=== PATIENT | male | born 1940 | race Caucasian/White ===

== ENCOUNTER 2016-11-12 13:50 | Inpatient (IN) | payer MEDICARE, MEDICAID ==
[2016-11-12] MEDS ORDERED: NS 0.9% 1000 ML* 1,000 ML IV SCH ×2 (14:45→18:00)
[2016-11-12] MEDS ORDERED: NS 0.9% 1000 ML* 1,000 ML IV ONE (14:46)
--- NOTE | 2016-11-12 15:10 | RAD ---
HISTORY: Altered mental status COMPARISONS: February 22, 2014 VIEWS:1: Single frontal portable view of the chest at 2:50 PM FINDINGS: LINES AND TUBES: None. CARDIOMEDIASTINAL SILHOUETTE: The cardiomediastinal silhouette is normal for portable technique. PLEURA: There is a moderate right pleural effusion LUNG PARENCHYMA: There is confluent alveolar opacification of the right lung base ABDOMEN: The upper abdomen is clear. There is no subphrenic gas. BONES AND SOFT TISSUES: No bone or soft tissue abnormalities are noted. IMPRESSION: MODERATE RIGHT PLEURAL EFFUSION WITH RIGHT BASILAR ATELECTASIS VERSUS CONSOLIDATION. RECOMMEND FOLLOW-UP UNTIL RESOLUTION TO EXCLUDE UNDERLYING PULMONARY PARENCHYMAL PATHOLOGY.
[2016-11-12 16:00] LABS: Hematocrit 37 % (42-52); Hemoglobin 12.4 g/dl (14.0-18.0); Mean Corpuscular HGB Conc 33 g/dl (31-36); Mean Corpuscular Hemoglobin 27 pg (27-31); Mean Corpuscular Volume 83 fL (80-94); Mean Platelet Volume 8 um3 (7.4-10.4); Red Blood Count 4.51 10^6/ul (4.0-5.4); Red Cell Distribution Width 14 % (10.5-15)
[2016-11-12 16:19] LABS: Albumin 3.1 g/dL (3.2-5.2); BUN/Creatinine Ratio 21.6 (8-20); C Reactive Protein 174.76 mg/L (< 5.00); Calcium 8.3 mg/dL (8.6-10.3); EGFR African American 108.3 (>60); EGFR Non-African American 84.2 (>60); Globulin 3.1 g/dL (2-4); Magnesium 2.1 mg/dL (1.9-2.7); Potassium 4.1 mmol/L (3.5-5.0); Total Bilirubin 0.4 mg/dL (0.2-1.0); Total Protein 6.2 g/dL (6.4-8.9)
[2016-11-12 16:24] LABS: Troponin I 0.01 ng/mL (<0.04)
[2016-11-12] MEDS ORDERED: Clindamycin 900 MG IVPREMIX(* 900 MG/50 ML SDV IV ONE (16:49)
[2016-11-12] MEDS ORDERED: cefTRIAXone(*) 1 GM in NS 0.9% 50 ML* 50 ML IVPB ONE (16:49)
[2016-11-12 16:56] LABS: TSH (Thyroid Stimulating Horm) 0.76 mcIU/mL (0.34-5.60)
[2016-11-12] MEDS ORDERED: Acetaminophen TAB* 325 MG PO PRN (17:38)
[2016-11-12] MEDS: Azithromycin IV(*) 500 MG in NS 0.9% 250 ML* 250 ML IVPB SCH ×2 (19:32→19:52)
[2016-11-12] MEDS: Piperac/Tazob 3.375 gm in NS* 3.375 GM/100 ML BAG IVPB SCH ×2 (19:47→21:59)
[2016-11-12] MEDS: PHENobarbital TAB(*) 30 MG PO SCH (20:01)
[2016-11-12] MEDS: Phenytoin CAP(*) 100 MG CAP.ER PO SCH (20:01)
[2016-11-12] MEDS: Heparin VIAL(*) 5000 UNITS/ML VIAL (FIVE THOUSAND) SUBCUT SCH (21:59)
--- NOTE | 2016-11-12 22:23 | HP ---
HISTORY AND PHYSICAL: DATE OF ADMISSION: 11/12/16 PRIMARY CARE PROVIDER: Dr. Lurdes Douglas. ATTENDING PHYSICIAN WHILE IN THE HOSPITAL: Dr. Sudarshan Guerin* (report dictated by Peter Ramsey NP) CHIEF COMPLAINT: 1. Cough. 2. Not acting right. HISTORY OF PRESENT ILLNESS: I would like to preface the report by saying that the patient has underlying severe intellectual developmental delay. He was unable to give much history. Most of the history was obtained from the patient' s primary skin care specialist, who knows the patient quite well. The patient's aide states that the last week or so, they have noticed that the patient has been coughing. It has been a nonproductive cough. They have noted decline in his appetite and they have also noted that he has not been acting himself. He is normally quite aggressive in the sense that he punches staff at times and sometimes he does interfere with medical devices and he hold things off. The aide notes that he has been more drowsy, just not acting himself, more weak. They have noticed a couple times when he has been coughing, it seems like he almost fainted. In addition to this, they noticed that when they tried getting him up ambulating today, he just was very weak and not acting himself. He is normally pretty self sufficient with ambulation. He does not need any help, so they were concerned. They do note that the week leading up this, he did have issues with eating. He did cough at times. He has passed a swallowing eval although according to them and was on honey liquid diet. In addition to this, also on ground meat as well, ground diet. The patient though, however, still is not acting himself, more lethargic, more drowsy, more weak, so they decide to bring the patient into the ER. They did note at times he was hypoxic at 88% particularly when he was coughing. He was evaluated in the ER. He was found to have a moderate to large right-sided pleural effusion. There was concern for aspiration pneumonitis and possible pneumonia. Hospitalist service was asked to evaluate for admission. PAST MEDICAL HISTORY: Significant for: 1. Intellectual developmental delay. 2. Hypocalcemia. 3. Seizure. 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 5. Chronic constipation. 6. BPH. PAST SURGICAL HISTORY: Unknown. HOME MEDICATIONS: Include: 1. Robitussin every 4 hours as needed. 2. Milk of mag 30 cc p.o. daily as needed. 3. Advil 400 mg p.o. every 6 hours as needed. 4. Tylenol 650 mg p.o. every 4 hours as needed. 5. Debrox 5 drops both ears on Friday. 6. Salicylic acid 2% topically daily. 7. Metronidazole cream 0.75% topically b.i.d. 8. Phenobarbital 60 mg at bedtime. 9. Senna 1 tablet p.o. b.i.d. 10. Ensure 1 can p.o. b.i.d. 11. Calcium with vitamin D 1 tablet p.o. b.i.d. 12. Flomax 0.4 mg p.o. daily. 13. Dilantin 200 mg daily. 14. MiraLAX 17 g p.o. daily. 15. Claritin 10 mg p.o. daily. 16. Proscar 5 mg p.o. daily. 17. Multivitamin 1 tablet daily. 18. Aspirin 81 mg daily. 19. Phenantoin 100 mg p.o. in the morning. ALLERGIES TO MEDICATIONS: Include SULFA. FAMILY HISTORY: None known. SOCIAL HISTORY: He does not smoke. He does not drink alcohol. He lives at [facility]. For consent, he has Haydee Pfeiffer, phone number [phone], other number [phone]. This is the patient's for consent and healthcare decision maker. REVIEW OF SYSTEMS: Unable to be obtained given the patient's underlying intellectual developmental delay. PHYSICAL EXAMINATION GENERAL: At this time, Mr. Jimenez is a 76-year-old male patient. He is sitting in the ER stretcher. He does not appear to be in any acute distress. VITAL SIGNS: Reveals blood pressure 116/94 with a pulse 87, respirations 18, O2 sat 94%, temperature 98.7. HEENT: Head atraumatic. Eyes: Sclerae anicteric. Pupils react to light. Throat: Oral mucosa appear to be dry. No oropharyngeal erythema. NECK: Supple. HEART: Sounds S1, S2. Regular rate and rhythm. No murmurs, rubs, or gallops. LUNGS: He was diminished on the right side. Equal diaphragmatic expansion. ABDOMEN: Soft, flat, nontender. Bowel sounds present. EXTREMITIES: He is moving all 4 extremities, pulses are 2+ throughout. NEUROLOGIC: He is awake to himself only. He has gross obvious focal deficits. SKIN: Intact. LABORATORY DATA: Labs today revealed WBC of 7.0, RBC of 4.51, hemoglobin 12.4 , hematocrit 37, platelet count of 192. INR 1.05. PTT at 30.9. Sodium 138, potassium 4.1, chloride of 103, bicarb 30, BUN 19, creatinine 0.88, glucose of 85, lactic 1.6, calcium 8.3, total bilirubin was 0.4, AST 17, ALT 14, alk phos 84, CK 102, CK-MB 2.1, troponin 0.01, CRP 174, BNP 27, albumin 3.1, lipase is 10 , TSH 0.76. The patient did have a chest x-ray obtained today. Under my review, there is [id number] pleural effusion on the right side. Radiology read it as moderate right-sided pleural effusion with right basilar atelectasis versus consolidation. Recommend followup until resolution to exclude underlying pulmonary parenchymal pathology. He had an EKG obtained today as well. Which showed a sinus rhythm, rate of 85, no ST elevations or T-wave inversions were noted. Old medical records were reviewed. ASSESSMENT AND PLAN: Mr. Jimenez is a 76-year-old male patient coming into the ER today with complaints of cough and potentially altered mental status compared to his baseline. On further evaluation, he was found to have a right- sided pleural effusion. He will be admitted under inpatient status for: 1. Right-sided pleural effusion with possible consolidation. This may be a parapneumonic effusion. It could be possible related to aspiration. The plan is leave the patient n.p.o. I did touch base with Radiology to set up a thoracentesis for a diagnostic tap. I also had consulted Dr. Fernandez as well. The plan will be to try to get this tap done tomorrow, send off for cultures and Gram stain. In addition to this, pH protein and LDH and a cell count on the fluid and we should also send off for cytology as well. For the time being , I am going to place the patient on Zosyn, azithromycin. Make the patient n.p.o. for the time being. After the thoracentesis, we could reevaluate his swallowing function and then order him appropriate diet. 2. Intellectual developmental delay. Continue with supportive care. 3. Hypocalcemia. We will follow his BMP daily. 4. Seizure. Continue meds as prescribed. 5. History of positive PPD. Can follow with the outpatient setting. 6. Constipation. We will continue his bowel regimen when he is taking better p.o. and after we get the tap done. 7. Benign prostatic hypertrophy. Continue his Flomax. 8. DVT prophylaxis. He is high risk. He will be placed on heparin subcu. 9. Code status. He is full code. 10. Fluids, electrolytes, nutrition. He is n.p.o. I will order normal saline at 100 an hour for the time being while he is n.p.o. and we will replace his lytes as needed. We will get swallow eval after thoracentesis is done for recommendations on his liquids and diet recommendations. TIME SPENT: Time spent on this admission was 60 minutes, greater than half the time was spent [id number] with the patient obtaining my history and physical, and the other half time was spent going over the plan of care with patient and implementing plan of care. I did discuss the plan of care with my attending, Dr. Guerin, he is in agreement. PETER RAMSEY NP CC: Dr. Lurdes Douglas* [id number]/CPS #: [id number] MTDD
[2016-11-13 03:24] LABS: Hematocrit 36 % (42-52); Hemoglobin 11.9 g/dl (14.0-18.0); Mean Corpuscular HGB Conc 33 g/dl (31-36); Mean Corpuscular Hemoglobin 28 pg (27-31); Mean Corpuscular Volume 83 fL (80-94); Mean Platelet Volume 8 um3 (7.4-10.4); Red Blood Count 4.33 10^6/ul (4.0-5.4); Red Cell Distribution Width 14 % (10.5-15); White Blood Count 5.4 10^3/ul (3.5-10.8)
[2016-11-13 03:41] LABS: BUN/Creatinine Ratio 19.1 (8-20); Calcium 8.1 mg/dL (8.6-10.3); EGFR African American 106.9 (>60); EGFR Non-African American 83.1 (>60); Potassium 4.2 mmol/L (3.5-5.0)
[2016-11-13] MEDS: Piperac/Tazob 3.375 gm in NS* 3.375 GM/100 ML BAG IVPB SCH ×3 (04:34→22:25)
[2016-11-13] MEDS: Heparin VIAL(*) 5000 UNITS/ML VIAL (FIVE THOUSAND) SUBCUT SCH ×3 (04:35→21:04)
[2016-11-13] MEDS: Tamsulosin CAP* 0.4 MG PO SCH (09:31)
[2016-11-13] MEDS: Phenytoin CAP(*) 100 MG CAP.ER PO SCH ×2 (09:31→18:31)
--- NOTE | 2016-11-13 10:32 | CONS ---
PULMONARY CONSULTATION REPORT: DATE OF CONSULT: 11/13/16 CONSULTATION REQUESTED BY: Peter Ramsey NP. REASON FOR CONSULTATION: Evaluation of pleural effusion. HISTORY OF PRESENT ILLNESS: The patient is a 76-year-old male with intellectual delay, resident of [facility], brought in for evaluation of cough and change in mental status. The patient is nonverbal and is not able to provide history due to intellectual delay. The patient as per aide has been having nonproductive, decline in his appetite and has not been himself. At baseline, the patient is quite aggressive and he has appeared to be more drowsy and weak. The patient was also noted to be coughing intermittently. The patient also has been appearing very weak and not acting himself. There is a question of possible aspiration at the facility. The patient also noted to be hypoxemic with O2 sats around 88% and coughing. Further evaluation in the emergency room included chest x-ray. I have personally reviewed the chest x-ray , which showed [id number] right-sided pleural effusion concerning for aspiration pneumonitis and pneumonia. He was admitted for management of aspiration pneumonitis and pleural effusion. The patient is on O2 supplementation currently. He is not able to provide any further history. PAST MEDICAL HISTORY: 1. Intellectual developmental delay. 2. Hypocalcemia. 3. Seizure. 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 5. Chronic constipation. 6. BPH. PAST SURGICAL HISTORY: Unknown. MEDICATIONS: 1. Robitussin. 2. Milk of magnesia. 3. Advil. 4. Tylenol. 5. Debrox. 6. Salicylic acid. 7. Metronidazole. 8. Phenobarbital. 9. Senna. 10. Ensure. 11. Calcium with vitamin D. 12. Flomax. 13. Dilantin. 14. MiraLAX. 15. Claritin. 16. Proscar. 17. Multivitamin. 18. Aspirin. 19. Phenytoin. ALLERGIES: SULFA. FAMILY HISTORY: Noncontributory to current complaint. SOCIAL HISTORY: Nonsmoker, no history of alcohol abuse. He lives at [facility]. His sister is his healthcare proxy. REVIEW OF SYSTEMS: Unable to obtain review of systems due to intellectual delay and unable to provide history by patient. PHYSICAL EXAMINATION: The patient in no apparent distress. Vital Signs: Temperature 98.7, pulse 92 beats per minute, respiratory rate 16 per minute, O2 saturation 93% on O2, blood pressure 98/50. HEENT: Pupils are equal and reactive to light. Mucous membranes are moist. Neck: Supple. Cardiovascular : S1 and S2 present, regular. No murmurs, gallops, or rubs. Lungs: Diminished air entry on the right side. Abdomen: Soft, nontender and nondistended. Extremities: Normal range of motion. Neurological: Alert, awake. No gross focal deficits. Skin: Intact. DIAGNOSTIC STUDIES/LABORATORY DATA: WBC count 5.4, hemoglobin 11.9, hematocrit 36, platelet count 178. INR 1.10. Sodium 140, potassium 4.2, chloride 106, bicarb 24, BUN 17, creatinine 0.8, calcium 8.1, BNP 27. Chest x-ray performed on admission was personally reviewed by me, evidence of moderate-sized right pleural effusion with no mediastinal shift. IMPRESSION/RECOMMENDATIONS: 76-year-old male with developmental delay, resident of [facility], admitted with cough, altered mental status, with suggestion of possible aspiration pneumonia and parapneumonic effusion. The patient with no significant elevated white count at this time. Agree with current antibiotic coverage. Continue with O2 supplementation. The patient is not cooperative for procedure. He appears to be stable. Procedure is not urgent at this time. Would recommend scheduling the procedure with Interventional Radiology as the patient would need conscious sedation during the procedure. Thank you for allowing me to participate in the care of your patient. Will follow up with you. [id number]/CPS #: [id number] ALIRIO
--- NOTE | 2016-11-13 12:48 | PN ---
Subjective Date of Service: 11/13/16 Interval History: HOSPITALIST PROGRESS NOTE Patient seen and examined at bedside. Non-verbal. Family History: Unchanged from Admission Social History: Unchanged from Admission Past Medical History: Unchanged from Admission Objective Active Medications: Acetaminophen (Tylenol Tab*) 650 mg PO Q4H PRN PRN Reason: FEVER/PAIN Heparin Sodium (Porcine) (Heparin Vial(*)) 5,000 units SUBCUT Q8HR [facility] Last Admin: 11/13/16 04:35 Dose: 5,000 units Azithromycin 500 mg/ Sodium (Chloride) 250 mls @ 250 mls/hr IVPB 1930 [facility] Last Admin: 11/12/16 19:32 Dose: 250 mls/hr Piperacillin Sod/Tazobactam Sod (Zosyn 3.375 Gm In Ns Premix*) 3.375 gm in 100 mls @ 25 mls/hr IVPB Q8H [facility] Last Admin: 11/13/16 04:34 Dose: 25 mls/hr Sodium Chloride (Ns 0.9% 1000 Ml*) 1,000 mls @ 100 mls/hr IV PER RATE [facility] Last Admin: 11/12/16 18:49 Dose: 100 mls/hr Phenobarbital (Phenobarbital Tab(*)) 60 mg PO 2000 [facility] Last Admin: 11/12/16 20:01 Dose: 60 mg Phenytoin Sodium (Dilantin Cap(*)) 100 mg PO QAM [facility] Last Admin: 11/13/16 09:31 Dose: 100 mg Phenytoin Sodium (Dilantin Cap(*)) 200 mg PO QPM [facility] Last Admin: 11/12/16 20:01 Dose: 200 mg Tamsulosin HCl (Flomax Cap*) 0.4 mg PO DAILY [facility] Last Admin: 11/13/16 09:31 Dose: 0.4 mg Vital Signs 11/13/16 11/13/16 11/13/16 08:00 08:11 11:24 Temperature 98.1 F 98.0 F Pulse Rate 99 92 Respiratory 16 17 16 Rate Blood Pressure 85/47 115/72 (mmHg) O2 Sat by Pulse 94 97 Oximetry Oxygen Devices in Use Now: Nasal Cannula Appearance: Elderly male lying in bed in NAD. Eyes: No Scleral Icterus Ears/Nose/Mouth/Throat: Mucous Membranes Moist Neck: Trachea Midline Respiratory: Symmetrical Chest Expansion and Respiratory Effort, - - BS+ bilaterally, diminished on the right side Cardiovascular: RRR - Normal S1 and S2 Abdominal: NL Sounds; No Tenderness; No Distention Neurological: - - Alert and awake, did not talk to me Lines/Tubes/Other Access: Clean, Dry and Intact Peripheral IV Result Diagrams: 11/13/16 03:12 11/13/16 03:12 Assess/Plan/Problems-Billing Assessment: Mr. Jimenez is a 76yo M with PMH of intelectual developmental delay, seizure disorder, positive PPD, chronic constipation, BPH, brought in to ED with cough, lethargy, found to have RLL pneumonia with pleural effusion. - Patient Problems (1) Pneumonia Comment: - RLL infiltrate with pleural effusion. - IR feels patient will need thoracentesis with general anesthesia, as he's not cooperative. Will contact Pulmonology to make arrangements. - Continue Zosyn and Zithromax to cover for possible aspiration and CAP. - Swallow evaluation - continue NPO for now. - Continue IVF. (2) Seizure disorder Comment: - Continue phenytoin and phenobarbital. - Seizure precautions. (3) BPH (benign prostatic hyperplasia) Comment: - Continue Tamsulosin. (4) DVT prophylaxis Comment: - SQ heparin. (5) Full code status Status and Disposition: Inpatient.
[2016-11-13] MEDS ORDERED: NS 0.9% 1000 ML* 1,000 ML IV SCH (13:09)
[2016-11-13] MEDS: Azithromycin IV(*) 500 MG in NS 0.9% 250 ML* 250 ML IVPB SCH (20:24)
[2016-11-13] MEDS: PHENobarbital TAB(*) 30 MG PO SCH (21:04)
[2016-11-14 03:24] LABS: Urine Bilirubin Negative (Negative); Urine Glucose Negative (Negative); Urine Nitrite Negative (Negative)
[2016-11-14] MEDS: Piperac/Tazob 3.375 gm in NS* 3.375 GM/100 ML BAG IVPB SCH ×3 (04:49→21:24)
[2016-11-14] MEDS: Heparin VIAL(*) 5000 UNITS/ML VIAL (FIVE THOUSAND) SUBCUT SCH ×3 (05:52→21:25)
[2016-11-14 07:02] LABS: Hematocrit 33 % (42-52); Hemoglobin 11.2 g/dl (14.0-18.0); Mean Corpuscular HGB Conc 34 g/dl (31-36); Mean Corpuscular Hemoglobin 28 pg (27-31); Mean Corpuscular Volume 82 fL (80-94); Mean Platelet Volume 8 um3 (7.4-10.4); Red Blood Count 4.04 10^6/ul (4.0-5.4); Red Cell Distribution Width 14 % (10.5-15)
[2016-11-14 07:16] LABS: BUN/Creatinine Ratio 15.9 (8-20); Calcium 8.1 mg/dL (8.6-10.3); EGFR African American 108.3 (>60); EGFR Non-African American 84.2 (>60); Potassium 4.1 mmol/L (3.5-5.0)
[2016-11-14] MEDS: Phenytoin CAP(*) 100 MG CAP.ER PO SCH ×2 (08:31→18:16)
[2016-11-14] MEDS: Tamsulosin CAP* 0.4 MG PO SCH (08:31)
--- NOTE | 2016-11-14 10:16 | PN ---
Progress Note - Progress Note Note: Pulm consult f/u note 11/14/16. Pt seen and examined at bedside. Pt is sitting in chair, talking loudly Active Medications Generic Name Dose Route Start Last Admin Trade Name Freq PRN Reason Stop Dose Admin Acetaminophen 650 mg 11/12/16 17:38 Tylenol Tab* PO Q4H PRN FEVER/PAIN Heparin Sodium (Porcine) 5,000 units 11/12/16 22:00 11/14/16 05:52 Heparin Vial(*) SUBCUT Not Given Q8HR WILLIE Azithromycin 500 mg/ Sodium 250 mls @ 250 mls/hr 11/12/16 19:30 11/13/16 20: 24 Chloride IVPB 250 mls/hr 1930 WILLIE Administration Piperacillin Sod/Tazobactam Sod 3.375 gm in 100 mls @ 25 mls/hr 11/12/16 20: 00 11/14/16 04:49 Zosyn 3.375 Gm In Ns Premix* IVPB 25 mls/hr Q8H WILLIE Administration Sodium Chloride 1,000 mls @ 100 mls/hr 11/13/16 13:09 11/13/16 22:26 Ns 0.9% 1000 Ml* IV 100 mls/hr PER RATE WILLIE Administration Phenobarbital 60 mg 11/12/16 20:00 11/13/16 21:04 Phenobarbital Tab(*) PO 60 mg 2000 WILLIE Administration Phenytoin Sodium 100 mg 11/13/16 09:00 11/14/16 08:31 Dilantin Cap(*) PO 100 mg QAM WILLIE Administration Phenytoin Sodium 200 mg 11/12/16 18:00 11/13/16 18:31 Dilantin Cap(*) PO 200 mg QPM WILLIE Administration Tamsulosin HCl 0.4 mg 11/13/16 09:00 11/14/16 08:31 Flomax Cap* PO 0.4 mg DAILY WILLIE Administration Vital Signs Temp Pulse Resp BP Pulse Ox 97.5 F 102 17 143/112 97 11/14/16 08:07 11/14/16 08:07 11/14/16 08:07 11/14/16 08:07 11/14/16 03:17 Gen: Elderly male sitting in chair in NAD. HEENT: No Scleral Icterus, Mucous Membranes Moist Neck: Trachea Midline Respiratory: Symmetrical Chest Expansion and Respiratory Effort,BS+ bilaterally , diminished on the right side Cardiovascular: RRR, Normal S1 and S2 Abdominal: NL Sounds; No Tenderness; No Distention Neurological: Alert and awake, doesnot answer questions Laboratory Results - last 24 hr 11/14/16 11/14/16 11/14/16 03:10 06:32 06:32 WBC 5.0 RBC 4.04 Hgb 11.2 L Hct 33 L MCV 82 MCH 28 MCHC 34 RDW 14 Plt Count 181 MPV 8 Neut % (Auto) 63.1 Lymph % (Auto) 21.0 L [place] % (Auto) 10.0 H Eos % (Auto) 5.2 Baso % (Auto) 0.7 Absolute Neuts (auto) 3.2 Absolute Lymphs (auto) 1.1 Absolute Monos (auto) 0.5 Absolute Eos (auto) 0.3 Absolute Basos (auto) 0 Absolute Nucleated RBC 0 Nucleated RBC % 0 Sodium 140 Potassium 4.1 Chloride 107 Carbon Dioxide 23 Anion Gap 10 BUN 14 Creatinine 0.88 Est GFR ( Amer) 108.3 Est GFR (Non-Af Amer) 84.2 BUN/Creatinine Ratio 15.9 Glucose 74 Calcium 8.1 L Urine Color Yellow Urine Appearance Clear Urine pH 5.0 Ur Specific [place] 1.024 Urine Protein Negative Urine Ketones 1+ H Urine Blood Negative Urine Nitrate Negative Urine Bilirubin Negative Urine Urobilinogen Negative Ur Leukocyte Esterase Negative Urine Glucose Negative I/R: Pt is a 76yo M with PMH of intelectual developmental delay, seizure disorder, positive PPD, chronic constipation, BPH, brought in to ED with cough, lethargy, found to have RLL pneumonia with pleural effusion. RLL infiltrate with pleural effusion- ? aspiration PNA and parapneumonic effusion - Pt scheduled for thoracentesis today under anesthesia as he is not coperative at baseline - Procedure was discussed in detail with pts sister and HCP, informed consent was obtained - Associated risks and complications including risk for pneumothorax in his case were discussed - It is felt that benefits outweigh the risks in his case and it was decided to proceed with procedure - Continue Zosyn and Zithromax to cover for possible aspiration and CAP. - Continue IVF. D/w Dr Loyola
[2016-11-14] MEDS ORDERED: Sodium Citrate/Citric Acid* 15 ML UDC PO ONE (10:40)
[2016-11-14] MEDS ORDERED: Famotidine IV* 10 MG/ML 2 ML (20 mg) IV ONE (10:40)
[2016-11-14] MEDS ORDERED: Buffered Lidocaine 1% SYRIN* 3 ML/SYR SYRINGE INTRADERM ONE (10:40)
[2016-11-14] MEDS ORDERED: Famotidine IV* 10 MG/ML 2 ML (20 mg) ONE (11:13)
[2016-11-14] MEDS ORDERED: Propofol* 10 MG/ML 20 ML BTL IV PUSH ONE (11:52)
[2016-11-14] MEDS ORDERED: Ondansetron INJ* 2 MG/ML VIAL ONE (11:52)
[2016-11-14] MEDS ORDERED: Midazolam* 1 MG/ML 5 ML VIAL (5 MG) ONE ×2 (11:53→12:38)
[2016-11-14] MEDS ORDERED: KETAMINE HCL* 50 MG/ML 10 ML VIAL ONE (11:53)
[2016-11-14] MEDS ORDERED: Lidocain 1% EPI 1:100,000 * 30 ML MDV ONE (11:59)
[2016-11-14] MEDS ORDERED: Lidocaine 1% MPF wEPI 200,000* 30 ML SDV ONE (11:59)
--- NOTE | 2016-11-14 13:12 | RAD ---
Indication: RIGHT pleural effusion. Marking for thoracentesis. Comparison: November 12, 2016 Technique: Ultrasound of the RIGHT thorax performed with the patient sitting. Dr. Fernandez present for the ultrasound examination. 7 images obtained. REPORT AND IMPRESSION: A moderate pocket of RIGHT basilar pleural fluid is visualized.
--- NOTE | 2016-11-14 14:07 | RAD ---
INDICATION: Thoracentesis. Evaluate for pneumothorax. COMPARISON: Chest x-ray November 12, 2016 TECHNIQUE: An AP portable view obtained at 1325 hours is submitted. FINDINGS: Bones/Soft Tissues: There are no acute bony findings. Cardiomediastinal: The cardiomediastinal silhouette is unchanged allowing for apical lordotic positioning. Lungs: The left lung is clear. There is decreased pleural fluid on the right postthoracentesis. There is no evidence of pneumothorax. Pleura: There are no pleural effusions. Other: None IMPRESSION: NO PNEUMOTHORAX POST RIGHT-SIDED THORACENTESIS
--- NOTE | 2016-11-14 15:55 | CONS ---
CONSULTATION REPORT: DATE OF CONSULT: 11/14/16 HISTORY: The patient is a 76-year-old male with a large right pleural effusion who was in the operating room for thoracentesis by Dr. Fernandez. She was having difficulty getting the thoracentesis needle into the space and called for intraoperative consultation. On my arrival, the patient was sitting at the bedside with intravenous sedation by the anesthesiologist. The right posterior thorax was already prepped and draped and I did review his chest x-ray and his ultrasound and felt that there looked like a reasonable amount of fluid that should be obtainable. After scrubbing in, I attempted with a skinny needle and approximately at the 9th interspace, I was able to get clear yellow fluid and then I was able to pass the thoracentesis catheter into the space and clear yellow fluid continued to be easily forthcoming. Dr. Fernandez completed the procedure at this point without difficulty. CC: Anish Garcia MD; Ginny Fernandez MD* [id number]/[facility] #: [id number] [facility]
[2016-11-14 18:38] LABS: Body Fluid Appearance Cloudy
--- NOTE | 2016-11-14 18:58 | PN ---
Subjective Date of Service: 11/14/16 Interval History: Pt was seen post thoracentesis, mildly sedated, nonverbal at baseline, appears comfortable Family History: Unchanged from Admission Social History: Unchanged from Admission Past Medical History: Unchanged from Admission Objective Active Medications: Acetaminophen (Tylenol Tab*) 650 mg PO Q4H PRN PRN Reason: FEVER/PAIN Heparin Sodium (Porcine) (Heparin Vial(*)) 5,000 units SUBCUT Q8HR [facility] Last Admin: 11/14/16 15:47 Dose: 5,000 units Azithromycin 500 mg/ Sodium (Chloride) 250 mls @ 250 mls/hr IVPB 1930 [facility] Last Admin: 11/13/16 20:24 Dose: 250 mls/hr Piperacillin Sod/Tazobactam Sod (Zosyn 3.375 Gm In Ns Premix*) 3.375 gm in 100 mls @ 25 mls/hr IVPB Q8H [facility] Last Admin: 11/14/16 13:50 Dose: 25 mls/hr Sodium Chloride (Ns 0.9% 1000 Ml*) 1,000 mls @ 100 mls/hr IV PER RATE [facility] Last Admin: 11/13/16 22:26 Dose: 100 mls/hr Lactated Ringer's (Lactated Ringers 1000 Ml Bag*) 1,000 mls @ 125 mls/hr IV PER RATE [facility] Last Admin: 11/14/16 18:18 Dose: 125 mls/hr Phenobarbital (Phenobarbital Tab(*)) 60 mg PO 2000 [facility] Last Admin: 11/13/16 21:04 Dose: 60 mg Phenytoin Sodium (Dilantin Cap(*)) 100 mg PO QAM [facility] Last Admin: 11/14/16 08:31 Dose: 100 mg Phenytoin Sodium (Dilantin Cap(*)) 200 mg PO QPM [facility] Last Admin: 11/14/16 18:16 Dose: 200 mg Tamsulosin HCl (Flomax Cap*) 0.4 mg PO DAILY [facility] Last Admin: 11/14/16 08:31 Dose: 0.4 mg Vital Signs 11/13/16 11/13/16 11/13/16 20:00 20:23 21:04 Temperature Pulse Rate 94 Respiratory 16 16 16 Rate Blood Pressure 91/66 (mmHg) O2 Sat by Pulse Oximetry 11/13/16 11/13/16 11/14/16 23:04 23:31 03:17 Temperature Pulse Rate 89 90 Respiratory 16 18 18 Rate Blood Pressure 109/66 109/64 (mmHg) O2 Sat by Pulse 95 97 Oximetry 11/14/16 11/14/16 11/14/16 08:00 08:07 11:10 Temperature 97.5 F 99.1 F Pulse Rate 102 88 Respiratory 17 17 18 Rate Blood Pressure 143/112 114/77 (mmHg) O2 Sat by Pulse 97 Oximetry 11/14/16 11/14/16 11/14/16 13:20 13:30 14:15 Temperature 97.5 F 97.5 F Pulse Rate 92 77 85 Respiratory 20 16 20 Rate Blood Pressure 147/72 136/60 124/77 (mmHg) O2 Sat by Pulse 100 96 99 Oximetry 11/14/16 11/14/16 11/14/16 15:15 16:00 17:54 Temperature 97.8 F 99.2 F Pulse Rate 78 92 Respiratory 16 18 Rate Blood Pressure 126/77 124/68 (mmHg) O2 Sat by Pulse 98 98 95 Oximetry Oxygen Devices in Use Now: None Appearance: 76 yo M in nAd, nonverbal, awake, lying in bed, unable to follow commands Eyes: No Scleral Icterus, PERRLA Ears/Nose/Mouth/Throat: NL Teeth, Lips, Gums, Mucous Membranes Moist Neck: NL Appearance and Movements; NL JVP, Trachea Midline Respiratory: Symmetrical Chest Expansion and Respiratory Effort, - - RLL rhonchi Cardiovascular: NL Sounds; No Murmurs; No JVD, RRR Abdominal: NL Sounds; No Tenderness; No Distention, No Hepatosplenomegaly Lymphatic: No Cervical Adenopathy Extremities: No Edema, No Clubbing, Cyanosis Skin: No Rash or Ulcers, No Nodules or Sclerosis Neurological: NL Muscle Strength and Tone Result Diagrams: 11/14/16 06:32 11/14/16 06:32 Additional Lab and Data: Lab Results 11/12/16 11/12/16 11/12/16 Range/Units 15:47 15:47 15:47 WBC 7.0 (3.5-10.8) 10^3/ul RBC 4.51 (4.0-5.4) 10^6/ul Hgb 12.4 L (14.0-18.0) g/dl Hct 37 L (42-52) % MCV 83 (80-94) fL MCH 27 (27-31) pg MCHC 33 (31-36) g/dl RDW 14 (10.5-15) % Plt Count 192 (150-450) 10^3/ul MPV 8 (7.4-10.4) um3 Neut % (Auto) 55.6 (38-83) % Lymph % (Auto) 25.7 (25-47) % [place] % (Auto) 14.4 H (1-9) % Eos % (Auto) 4.1 (0-6) % Baso % (Auto) 0.2 (0-2) % Absolute Neuts (auto) 3.9 (1.5-7.7) 10^3/ul Absolute Lymphs (auto) 1.8 (1.0-4.8) 10^3/ul Absolute Monos (auto) 1.0 H (0-0.8) 10^3/ul Absolute Eos (auto) 0.3 (0-0.6) 10^3/ul Absolute Basos (auto) 0 (0-0.2) 10^3/ul Absolute Nucleated RBC 0 10^3/ul Nucleated RBC % 0 INR (Anticoag Therapy) 1.05 (0.89-1.11) APTT 30.9 (26.0-36.3) seconds Sodium 138 (133-145) mmol/L Potassium 4.1 (3.5-5.0) mmol/L Chloride 103 (101-111) mmol/L Carbon Dioxide 30 (22-32) mmol/L Anion Gap 5 (2-11) mmol/L BUN 19 (6-24) mg/dL Creatinine 0.88 (0.67-1.17) mg/dL Est GFR ( Amer) 108.3 (>60) Est GFR (Non-Af Amer) 84.2 (>60) BUN/Creatinine Ratio 21.6 H (8-20) Glucose 85 (70-100) mg/dL Lactic Acid (0.5-2.0) mmol/L Calcium 8.3 L (8.6-10.3) mg/dL Magnesium 2.1 (1.9-2.7) mg/dL Total Bilirubin 0.40 (0.2-1.0) mg/dL AST 17 (13-39) U/L ALT 14 (7-52) U/L Alkaline Phosphatase 84 (34-104) U/L Total Creatine Kinase 102 (10-223) U/L CK-MB (CK-2) 2.1 (0.6-6.3) ng/mL Troponin I 0.01 (<0.04) ng/mL C-Reactive Protein 174.76 H (< 5.00) mg/L B-Natriuretic Peptide ( - 100) pg/mL Total Protein 6.2 L (6.4-8.9) g/dL Albumin 3.1 L (3.2-5.2) g/dL Globulin 3.1 (2-4) g/dL Albumin/Globulin Ratio 1.0 (1-3) Lipase 10 L (11.0-82.0) U/L TSH Pending 11/12/16 11/12/16 Range/Units 15:47 15:47 WBC (3.5-10.8) 10^3/ul RBC (4.0-5.4) 10^6/ul Hgb (14.0-18.0) g/dl Hct (42-52) % MCV (80-94) fL MCH (27-31) pg MCHC (31-36) g/dl RDW (10.5-15) % Plt Count (150-450) 10^3/ul MPV (7.4-10.4) um3 Neut % (Auto) (38-83) % Lymph % (Auto) (25-47) % [place] % (Auto) (1-9) % Eos % (Auto) (0-6) % Baso % (Auto) (0-2) % Absolute Neuts (auto) (1.5-7.7) 10^3/ul Absolute Lymphs (auto) (1.0-4.8) 10^3/ul Absolute Monos (auto) (0-0.8) 10^3/ul Absolute Eos (auto) (0-0.6) 10^3/ul Absolute Basos (auto) (0-0.2) 10^3/ul Absolute Nucleated RBC 10^3/ul Nucleated RBC % INR (Anticoag Therapy) (0.89-1.11) APTT (26.0-36.3) seconds Sodium (133-145) mmol/L Potassium (3.5-5.0) mmol/L Chloride (101-111) mmol/L Carbon Dioxide (22-32) mmol/L Anion Gap (2-11) mmol/L BUN (6-24) mg/dL Creatinine (0.67-1.17) mg/dL Est GFR ( Amer) (>60) Est GFR (Non-Af Amer) (>60) BUN/Creatinine Ratio (8-20) Glucose (70-100) mg/dL Lactic Acid 1.6 (0.5-2.0) mmol/L Calcium (8.6-10.3) mg/dL Magnesium (1.9-2.7) mg/dL Total Bilirubin (0.2-1.0) mg/dL AST (13-39) U/L ALT (7-52) U/L Alkaline Phosphatase (34-104) U/L Total Creatine Kinase (10-223) U/L CK-MB (CK-2) (0.6-6.3) ng/mL Troponin I (<0.04) ng/mL C-Reactive Protein (< 5.00) mg/L B-Natriuretic Peptide 27 ( - 100) pg/mL Total Protein (6.4-8.9) g/dL Albumin (3.2-5.2) g/dL Globulin (2-4) g/dL Albumin/Globulin Ratio (1-3) Lipase (11.0-82.0) U/L TSH Microbiology and Other Data: Microbiology 11/12/16 18:43 Influenza Types A,B Antigen ([facility]) - Final Nasal Specimen received for Influenza A/B Molecular testing 11/12/16 18:43 Nasal Screen MRSA (PCR)([facility]) - Final Nasal Mrsa Positive Assess/Plan/Problems-Billing Assessment: Mr. Jimenez is a 76yo M with PMH of intelectual developmental delay, seizure disorder, positive PPD, chronic constipation, BPH, brought in to ED with cough, lethargy, found to have RLL pneumonia with pleural effusion. - Patient Problems (1) Pneumonia Comment: - RLL infiltrate with pleural effusion. - s/p thoracentesis with general anesthesia today. 800 ml of fluid removed,labs pending - Continue Zosyn and Zithromax to cover for possible aspiration and CAP. - Swallow evaluation -OKed for mech ground and thickened liquids - Continue IVF. (2) Seizure disorder Comment: - Continue phenytoin and phenobarbital. - Seizure precautions. (3) BPH (benign prostatic hyperplasia) Comment: - Continue Tamsulosin. (4) DVT prophylaxis Comment: - SQ heparin. Status and Disposition: Inpatient.
[2016-11-14 19:08] LABS: Body Fluid Total Cells Counted 100
[2016-11-14] MEDS: Azithromycin IV(*) 500 MG in NS 0.9% 250 ML* 250 ML IVPB SCH (20:02)
[2016-11-14] MEDS: PHENobarbital TAB(*) 30 MG PO SCH (21:24)
--- NOTE | 2016-11-15 02:04 | PRO ---
THORACENTESIS REPORT: DATE OF PROCEDURE: 11/14/16 PROCEDURE PERFORMED: Ultrasound-guided thoracentesis on the right side. INDICATION/PREPROCEDURAL DIAGNOSIS: Moderate to large sized right pleural effusion, concern for parapneumonic effusion. ANESTHESIA: Local anesthesia with 1% lidocaine, 10 cc and conscious sedation. ANESTHESIOLOGIST: Dr. Mackay, refer to Dr. Mackay's notes for further details. PROCEDURE IN DETAIL: Informed consent was obtained from the patient's sister who is his healthcare proxy. 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 The patient was admitted for for evalaution of aspiration pneumonia and suspicion for parapneumonic effusion. The patient is agitated at baseline and is not cooperative for procedure. The patient needed conscious sedation during the procedure with ketamine. The patient was sitting upright after sedation. Appropriate timeout was agreed on by attending staff. Portable ultrasound was utilized at that site to locate moderate amounts of right pleural effusion. Sterile aseptic precautions were utilized. The patient received adequate anesthesia and local anesthesia prior to the procedure. I was not able to enter the pleural space due to interruption from hitting the ribs. Dr. Garcia took over from that point and inserted thoracentesis catheter into the eighth pleural space, which was earlier marked by ultrasound. Catheter was left in place and needle was withdrawn. 800 mL of free flowing turbid fluid was removed. The patient tolerated the procedure well. Postprocedure chest x-ray was performed and was evaluated by me. No pneumothorax was seen. Fluid was sent into the lab for examination. [id number]/[facility] #: [id number] MTDD
[2016-11-15] MEDS: Piperac/Tazob 3.375 gm in NS* 3.375 GM/100 ML BAG IVPB SCH ×2 (04:41→11:37)
[2016-11-15] MEDS: Heparin VIAL(*) 5000 UNITS/ML VIAL (FIVE THOUSAND) SUBCUT SCH ×3 (06:08→21:25)
[2016-11-15] MEDS: Phenytoin CAP(*) 100 MG CAP.ER PO SCH ×2 (07:44→17:15)
[2016-11-15] MEDS: Tamsulosin CAP* 0.4 MG PO SCH (07:44)
[2016-11-15] MEDS ORDERED: Iohexol 300* (CONTRAST) 10 ML SDV IV ONE (15:10)
--- NOTE | 2016-11-15 15:29 | PN ---
Progress Note - Progress Note Note: Pulm consult f/u note 11/15/16. Pt seen and examined at bedside. Pt is sitting in chair, talking loudly Active Medications Generic Name Dose Route Start Last Admin Trade Name Frejay PRN Reason Stop Dose Admin Acetaminophen 650 mg 11/12/16 17:38 Tylenol Tab* PO Q4H PRN FEVER/PAIN Heparin Sodium (Porcine) 5,000 units 11/12/16 22:00 11/15/16 13:12 Heparin Vial(*) SUBCUT 5,000 units Q8HR WILLIE Administration Azithromycin 500 mg/ Sodium 250 mls @ 250 mls/hr 11/12/16 19:30 11/14/16 20: 02 Chloride IVPB 250 mls/hr 1930 WILLIE Administration Piperacillin Sod/Tazobactam Sod 3.375 gm in 100 mls @ 25 mls/hr 11/12/16 20: 00 11/15/16 11:37 Zosyn 3.375 Gm In Ns Premix* IVPB 25 mls/hr Q8H WILLIE Administration Phenobarbital 60 mg 11/12/16 20:00 11/14/16 21:24 Phenobarbital Tab(*) PO 60 mg 2000 WILLIE Administration Phenytoin Sodium 100 mg 11/13/16 09:00 11/15/16 07:44 Dilantin Cap(*) PO 100 mg QAM WILLIE Administration Phenytoin Sodium 200 mg 11/12/16 18:00 11/14/16 18:16 Dilantin Cap(*) PO 200 mg QPM WILLIE Administration Tamsulosin HCl 0.4 mg 11/13/16 09:00 11/15/16 07:44 Flomax Cap* PO 0.4 mg DAILY WILLIE Administration Vital Signs Temp Pulse Resp BP Pulse Ox 98.3 F 92 16 111/62 97 11/15/16 11:29 11/15/16 11:29 11/15/16 11:29 11/15/16 11:29 11/15/16 11:29 Gen: Elderly male sitting in chair in NAD. HEENT: No Scleral Icterus, Mucous Membranes Moist Neck: Trachea Midline Respiratory: Symmetrical Chest Expansion and Respiratory Effort,BS+ bilaterally , diminished at the right base Cardiovascular: RRR, Normal S1 and S2 Abdominal: NL Sounds; No Tenderness; No Distention Neurological: Alert and awake, doesnot answer questions Laboratory Results - last 24 hr 11/14/16 11:00 Fluid Source Pleural fluid Fluid Volume Not Reportable Fluid Color Yellow Fluid Appearance Cloudy Fluid WBC TNP Fluid RBC TNP Fluid Tot Cell Count 100 Fluid Neutrophils 14 Fluid Lymphocytes 77 Fluid Monocytes 9 Fluid Cell Count Rvw By I/R: Pt is a 76yo M with PMH of intelectual developmental delay, seizure disorder, positive PPD, chronic constipation, BPH, brought in to ED with cough, lethargy, found to have RLL pneumonia with pleural effusion. RLL infiltrate with pleural effusion- ? aspiration PNA and parapneumonic effusion - Pt underwent thoracentesis yesterday under anesthesia as he is not coperative at baseline - PCytology showed malignant cells, further identification pending - Continue Zosyn and Zithromax to cover for possible aspiration and CAP. - Continue IVF. - Oncology consultation and CT chest and abdomen for further staging D/w Dr Castellanos
--- NOTE | 2016-11-15 16:01 | RAD ---
INDICATION: Malignant pleural effusion evaluate for malignancy. COMPARISON: Comparison is made with a prior CT of the chest and abdomen from April 12, [address] of the abdomen and pelvis from February 07, 2015. TECHNIQUE: A CT scan of the chest, abdomen and pelvis was performed with intravenous and oral contrast following intravenous injection of 72 ml of Omnipaque 300 nonionic contrast. Contiguous axial sections were obtained from the lung apices through the symphysis pubis. Images were reconstructed in the coronal and sagittal planes. FINDINGS: There is a moderate size right pleural effusion and a right lower lobe infiltrate. The left lung appears clear. There are enlarged lymph nodes in the pretracheal region measuring up to 1.2 cm in size. There is an enlarged subcarinal lymph node measuring up to 1.5 cm in size. No left hilar lymph nodes are seen. The right hilum is obscured by an adjacent infiltrate. The heart is within normal limits in size. No pericardial effusion is present. The thoracic aorta is normal in caliber. The liver and spleen are normal in size without significant focal abnormality. No calcified gallstones are seen. The pancreas appears to be within normal limits in size. The kidneys and adrenal glands are normal in size. There is no evidence for hydronephrosis. There are multiple bilateral peripelvic renal cysts present. There is diffuse thickening of the wall of the urinary bladder. There is a cystic structure present along the posterior aspect of the bladder on the right side most consistent with a bladder diverticulum. This measures 4.0 cm in transverse dimension and has increased slightly in size from the prior study. The prostate gland is enlarged measuring 5.0 cm in transverse dimension. The aorta is normal in caliber and demonstrates homogeneous contrast opacification. No significant enlarged retroperitoneal lymph nodes are seen. The stomach, small and large bowel appear nondistended. There is no evidence for diverticulitis or colitis. No free intraperitoneal air or fluid is seen. No significant focal osseous abnormality is seen. IMPRESSION: 1. RIGHT LOWER LOBE INFILTRATE AND MODERATE SIZE RIGHT PLEURAL EFFUSION. 2. MILDLY ENLARGED MEDIASTINAL LYMPH NODES. 3. ENLARGED PROSTATE GLAND AND LARGE BLADDER DIVERTICULUM. THERE IS ALSO DIFFUSE THICKENING OF THE WALL OF THE URINARY BLADDER WHICH IS UNCHANGED FROM THE PRIOR STUDY.
--- NOTE | 2016-11-15 16:36 | PN ---
Subjective Date of Service: 11/15/16 Interval History: Pt is at baseline: nonverbal, moving UE's frequently Family History: Unchanged from Admission Social History: Unchanged from Admission Past Medical History: Unchanged from Admission Objective Active Medications: Acetaminophen (Tylenol Tab*) 650 mg PO Q4H PRN PRN Reason: FEVER/PAIN Heparin Sodium (Porcine) (Heparin Vial(*)) 5,000 units SUBCUT Q8HR [facility] Last Admin: 11/15/16 13:12 Dose: 5,000 units Azithromycin 500 mg/ Sodium (Chloride) 250 mls @ 250 mls/hr IVPB 1930 [facility] Last Admin: 11/14/16 20:02 Dose: 250 mls/hr Piperacillin Sod/Tazobactam Sod (Zosyn 3.375 Gm In Ns Premix*) 3.375 gm in 100 mls @ 25 mls/hr IVPB Q8H [facility] Last Admin: 11/15/16 11:37 Dose: 25 mls/hr Phenobarbital (Phenobarbital Tab(*)) 60 mg PO 2000 [facility] Last Admin: 11/14/16 21:24 Dose: 60 mg Phenytoin Sodium (Dilantin Cap(*)) 100 mg PO QAM [facility] Last Admin: 11/15/16 07:44 Dose: 100 mg Phenytoin Sodium (Dilantin Cap(*)) 200 mg PO QPM [facility] Last Admin: 11/14/16 18:16 Dose: 200 mg Tamsulosin HCl (Flomax Cap*) 0.4 mg PO DAILY [facility] Last Admin: 11/15/16 07:44 Dose: 0.4 mg Vital Signs 11/14/16 11/14/16 11/14/16 17:54 20:00 20:01 Temperature 99.2 F 97.3 F Pulse Rate 92 96 Respiratory 18 16 18 Rate Blood Pressure 124/68 130/80 (mmHg) O2 Sat by Pulse 95 94 Oximetry 11/14/16 11/14/16 11/14/16 21:24 22:03 23:24 Temperature 98.5 F Pulse Rate 96 Respiratory 20 18 16 Rate Blood Pressure 123/61 (mmHg) O2 Sat by Pulse 96 Oximetry 11/15/16 11/15/16 11/15/16 02:02 02:13 07:37 Temperature 99.4 F Pulse Rate 96 92 Respiratory 16 16 Rate Blood Pressure 105/59 104/58 (mmHg) O2 Sat by Pulse 95 95 Oximetry 11/15/16 11/15/16 11/15/16 07:38 07:48 11:29 Temperature 97.3 F 98.3 F Pulse Rate 92 Respiratory 14 16 Rate Blood Pressure 111/62 (mmHg) O2 Sat by Pulse 94 97 Oximetry Oxygen Devices in Use Now: None Appearance: 76 yo M sitting in a chair in NAD, nonverbal, unable to follow commands Eyes: No Scleral Icterus, PERRLA Ears/Nose/Mouth/Throat: NL Teeth, Lips, Gums, Mucous Membranes Moist Neck: NL Appearance and Movements; NL JVP, Trachea Midline Respiratory: Symmetrical Chest Expansion and Respiratory Effort, - - RLL rhonchi Cardiovascular: NL Sounds; No Murmurs; No JVD, RRR Abdominal: NL Sounds; No Tenderness; No Distention Lymphatic: No Cervical Adenopathy Extremities: No Edema, No Clubbing, Cyanosis Skin: No Rash or Ulcers, No Nodules or Sclerosis Neurological: NL Muscle Strength and Tone, - - nonverbal Result Diagrams: 11/14/16 06:32 11/14/16 06:32 Additional Lab and Data: Lab Results 11/12/16 11/12/16 11/12/16 Range/Units 15:47 15:47 15:47 WBC 7.0 (3.5-10.8) 10^3/ul RBC 4.51 (4.0-5.4) 10^6/ul Hgb 12.4 L (14.0-18.0) g/dl Hct 37 L (42-52) % MCV 83 (80-94) fL MCH 27 (27-31) pg MCHC 33 (31-36) g/dl RDW 14 (10.5-15) % Plt Count 192 (150-450) 10^3/ul MPV 8 (7.4-10.4) um3 Neut % (Auto) 55.6 (38-83) % Lymph % (Auto) 25.7 (25-47) % [place] % (Auto) 14.4 H (1-9) % Eos % (Auto) 4.1 (0-6) % Baso % (Auto) 0.2 (0-2) % Absolute Neuts (auto) 3.9 (1.5-7.7) 10^3/ul Absolute Lymphs (auto) 1.8 (1.0-4.8) 10^3/ul Absolute Monos (auto) 1.0 H (0-0.8) 10^3/ul Absolute Eos (auto) 0.3 (0-0.6) 10^3/ul Absolute Basos (auto) 0 (0-0.2) 10^3/ul Absolute Nucleated RBC 0 10^3/ul Nucleated RBC % 0 INR (Anticoag Therapy) 1.05 (0.89-1.11) APTT 30.9 (26.0-36.3) seconds Sodium 138 (133-145) mmol/L Potassium 4.1 (3.5-5.0) mmol/L Chloride 103 (101-111) mmol/L Carbon Dioxide 30 (22-32) mmol/L Anion Gap 5 (2-11) mmol/L BUN 19 (6-24) mg/dL Creatinine 0.88 (0.67-1.17) mg/dL Est GFR ( Amer) 108.3 (>60) Est GFR (Non-Af Amer) 84.2 (>60) BUN/Creatinine Ratio 21.6 H (8-20) Glucose 85 (70-100) mg/dL Lactic Acid (0.5-2.0) mmol/L Calcium 8.3 L (8.6-10.3) mg/dL Magnesium 2.1 (1.9-2.7) mg/dL Total Bilirubin 0.40 (0.2-1.0) mg/dL AST 17 (13-39) U/L ALT 14 (7-52) U/L Alkaline Phosphatase 84 (34-104) U/L Total Creatine Kinase 102 (10-223) U/L CK-MB (CK-2) 2.1 (0.6-6.3) ng/mL Troponin I 0.01 (<0.04) ng/mL C-Reactive Protein 174.76 H (< 5.00) mg/L B-Natriuretic Peptide ( - 100) pg/mL Total Protein 6.2 L (6.4-8.9) g/dL Albumin 3.1 L (3.2-5.2) g/dL Globulin 3.1 (2-4) g/dL Albumin/Globulin Ratio 1.0 (1-3) Lipase 10 L (11.0-82.0) U/L TSH Pending 11/12/16 11/12/16 Range/Units 15:47 15:47 WBC (3.5-10.8) 10^3/ul RBC (4.0-5.4) 10^6/ul Hgb (14.0-18.0) g/dl Hct (42-52) % MCV (80-94) fL MCH (27-31) pg MCHC (31-36) g/dl RDW (10.5-15) % Plt Count (150-450) 10^3/ul MPV (7.4-10.4) um3 Neut % (Auto) (38-83) % Lymph % (Auto) (25-47) % [place] % (Auto) (1-9) % Eos % (Auto) (0-6) % Baso % (Auto) (0-2) % Absolute Neuts (auto) (1.5-7.7) 10^3/ul Absolute Lymphs (auto) (1.0-4.8) 10^3/ul Absolute Monos (auto) (0-0.8) 10^3/ul Absolute Eos (auto) (0-0.6) 10^3/ul Absolute Basos (auto) (0-0.2) 10^3/ul Absolute Nucleated RBC 10^3/ul Nucleated RBC % INR (Anticoag Therapy) (0.89-1.11) APTT (26.0-36.3) seconds Sodium (133-145) mmol/L Potassium (3.5-5.0) mmol/L Chloride (101-111) mmol/L Carbon Dioxide (22-32) mmol/L Anion Gap (2-11) mmol/L BUN (6-24) mg/dL Creatinine (0.67-1.17) mg/dL Est GFR ( Amer) (>60) Est GFR (Non-Af Amer) (>60) BUN/Creatinine Ratio (8-20) Glucose (70-100) mg/dL Lactic Acid 1.6 (0.5-2.0) mmol/L Calcium (8.6-10.3) mg/dL Magnesium (1.9-2.7) mg/dL Total Bilirubin (0.2-1.0) mg/dL AST (13-39) U/L ALT (7-52) U/L Alkaline Phosphatase (34-104) U/L Total Creatine Kinase (10-223) U/L CK-MB (CK-2) (0.6-6.3) ng/mL Troponin I (<0.04) ng/mL C-Reactive Protein (< 5.00) mg/L B-Natriuretic Peptide 27 ( - 100) pg/mL Total Protein (6.4-8.9) g/dL Albumin (3.2-5.2) g/dL Globulin (2-4) g/dL Albumin/Globulin Ratio (1-3) Lipase (11.0-82.0) U/L TSH Microbiology and Other Data: Microbiology 11/12/16 18:43 Influenza Types A,B Antigen ([facility]) - Final Nasal Specimen received for Influenza A/B Molecular testing 11/12/16 18:43 Nasal Screen MRSA (PCR)([facility]) - Final Nasal Mrsa Positive Assess/Plan/Problems-Billing Assessment: Mr. Jimenez is a 76yo M with PMH of intelectual developmental delay, seizure disorder, positive PPD, chronic constipation, BPH, brought in to ED with cough, lethargy, found to have RLL pneumonia with pleural effusion. - Patient Problems (1) Pneumonia Comment: - RLL infiltrate with pleural effusion. - s/p thoracentesis with general anesthesia on 11/14/16. 800 ml of fluid removed ,labs pending. Cytology positive for malignancy (verbal report from pathologist , stains pending). -spoke with oncology who recommended CT chest /abd /pelvis. -will switch to PO Augmentin - Swallow evaluation -OKed for mech ground and thickened liquids (2) Seizure disorder Comment: - Continue phenytoin and phenobarbital. - Seizure precautions. (3) BPH (benign prostatic hyperplasia) Comment: - Continue Tamsulosin. (4) DVT prophylaxis Comment: - SQ heparin. Status and Disposition: Inpatient. Possible d/c tomorrow with outpatient oncology f/u
--- NOTE | 2016-11-15 18:35 | ED ---
Matt Ramires Billy, scribed for Mono Montiel MD on 11/12/16 at 1645 . 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 The patient is nonverbal and has a history of profound MR. His electronic gluing machine operator states that he has had a cough over the last week including several prolonged coughing episodes resulting in what appears to be a syncopal episode. Casting Trucker states that she and staff at the community home have noticed a loss of balance, fatigue, fever, rhinorrhea, and decreased appetite. No N/V/D. Level 5 caveat. - History Of Current Complaint Chief Complaint: EDSyncope Time Seen by Provider: 11/12/16 14:58 Hx Obtained From: Family/Casting Trucker Hx From Patient Unobtainable Due To: Other - Profound MR Onset/Duration: Gradual Onset, Lasting Days, Still Present Timing: Constant Severity Currently: Moderate Severity Initially: Moderate Aggravating Factor(s): none Alleviating Factor(s): none Associated Signs And Symptoms: Positive: Cough, Decreased Oral Intake, Fever, Other - fatigue, rhinorrhea, loss of balance. Negative: Nausea, Vomiting, Diarrhea - Allergies/Home Medications Allergies/Adverse Reactions: Allergies Allergy/AdvReac Type Severity Reaction Status Date / Time Sulfamethoxazole Allergy Intermediate Rash Verified 07/04/15 11:21 Sulfamethoxazole Allergy Intermediate Rash Verified 07/04/15 11:21 w/Trimethoprim [From Bactrim] Trimethoprim Allergy Intermediate Rash Verified 07/04/15 11:21 Flu Virus Vaccine Allergy Unknown Unknown Verified 07/04/15 11:21 Reaction Details Home Medications: Home Medications Carbamide Peroxide 6.5% OTIC* [DEBROX 6.5% Otic*] 5 drop BOTH EARS WE 11/12/16 [ History Confirmed 11/12/16] Magnesium Hydroxide LIQ* [Milk of Magnesia LIQ*] 30 ml PO DAILY PRN 11/12/16 [ History Confirmed 11/12/16] Metronidazole (Topical) [Metrocream] 0.75 % TOPICAL BID 11/12/16 [History Confirmed 11/12/16] Nutritional Supplements [Ensure] 1 can PO BID 11/12/16 [History Confirmed ] Phenobarbital 60 mg PO 199911/12/16 [History Confirmed 11/12/16] Salicylic Acid [Stridex Essential] 2 % TOPICAL DAILY 11/12/16 [History Confirmed 11/12/16] Tamsulosin CAP* [Flomax CAP*] 0.4 mg PO DAILY 11/12/16 [History Confirmed ] guaiFENesin LIQ* [Robitussin*] 10 ml PO Q4H PRN 11/12/16 [History Confirmed ] PMH/Surg Hx/FS Hx/Imm Hx Endocrine/Hematology History: Reports: Other Endocrine/Hematological Disorders - HYPOGLYCEMIA Denies: Hx Diabetes, Hx Thyroid Disease Cardiovascular History: Denies: Hx Hypertension Respiratory History: Denies: Hx Asthma, Hx Chronic Obstructive Pulmonary Disease (COPD) GI History: Reports: Other GI Disorders - CONSTIPATION Denies: Hx Ulcer Musculoskeletal History: Reports: Hx Back Problems - SCLEOSIS, Other Musculoskeletal History - ONYCHONYCOSIS Neurological History: Reports: Other Neuro Impairments/Disorders - PROFOUND MR - Surgical History Surgery Procedure, Year, and Place: ABD ABCESS I&D WITH DRAIN HX. NOT CURRENT. 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 Denies: Hx Clostridium Difficile, Hx Hepatitis, Hx Human Immunodeficiency Virus (HIV), Hx of Known/Suspected MRSA, Hx Shingles, Hx Known/Suspected VRE, Hx Known/Suspected VRSA, History Other Infectious Disease, Traveled Outside the [place] in Last 30 Days - Family History Known Family History: Positive: Unknown - Patient is nonverbal. - Social History Alcohol Use: None Substance Use Type: Reports: None Smoking Status (MU): Never Smoked Tobacco Review of Systems Positive: Fatigue, Other - loss of balance Positive: Nasal Discharge Positive: Cough Positive: Other - decreased appetite. Negative: Vomiting, Diarrhea, Nausea All Other Systems Reviewed And Are Negative: No - Comments Additional Review of Systems Comments: Patient is unable to provide a full ROS because he is nonverbal and has a history of profound MR. Physical Exam - Summary Physical Exam Summary: Constitutional: Well-developed, Well-nourished, Alert, Keenly responsive. (-) Distressed Skin: Warm, Dry HENT: Normocephalic; Atraumatic. Dry mucous membranes. Eyes: Conjunctiva normal Neck: Musculoskeletal ROM normal neck. (-) JVD, (-) Stridor, (-) Tracheal deviation Cardio: Rhythm regular, rate normal, Heart sounds normal; Intact distal pulses; The pedal pulses are 2+ and symmetric. Radial pulses are 2+ and symmetric. (-) Murmur Pulmonary/Chest wall: Effort normal. Decreased breath sounds. (-) Respiratory distress, (-) Wheezes, (-) Rales Abd: Soft, (-) Tenderness, (-) Distension, (-) Guarding, (-) Rebound Musculoskeletal: (-) Edema Lymph: (-) Cervical adenopathy Neuro: Alert, nonverbal at baseline. Psych: Patient is nonverbal at baseline. Triage Information Reviewed: Yes Vital Signs On Initial Exam: Initial Vitals Temp Pulse Resp BP 99.6 F 84 18 120/78 11/12/16 14:10 11/12/16 14:10 11/12/16 14:10 11/12/16 14:10 Vital Signs Reviewed: Yes Completion Of Physical Exam Limited Due To: Level 5 - [place] Coma Scale Coma Scale Total: 3 Diagnostics - Vital Signs Vital Signs Temp Pulse Resp BP Pulse Ox 11/12/16 15:52 86 15 116/94 94 11/12/16 15:30 82 17 113/73 95 11/12/16 15:00 81 17 101/67 95 11/12/16 14:37 82 101/74 92 11/12/16 14:31 98.7 F 82 19 101/74 94 11/12/16 14:10 99.6 F 84 18 120/78 - Laboratory Lab Results: Lab Results 11/12/16 11/12/16 11/12/16 Range/Units 15:47 15:47 15:47 WBC 7.0 (3.5-10.8) 10^3/ul RBC 4.51 (4.0-5.4) 10^6/ul Hgb 12.4 L (14.0-18.0) g/dl Hct 37 L (42-52) % MCV 83 (80-94) fL MCH 27 (27-31) pg MCHC 33 (31-36) g/dl RDW 14 (10.5-15) % Plt Count 192 (150-450) 10^3/ul MPV 8 (7.4-10.4) um3 Neut % (Auto) 55.6 (38-83) % Lymph % (Auto) 25.7 (25-47) % Pope % (Auto) 14.4 H (1-9) % Eos % (Auto) 4.1 (0-6) % Baso % (Auto) 0.2 (0-2) % Absolute Neuts (auto) 3.9 (1.5-7.7) 10^3/ul Absolute Lymphs (auto) 1.8 (1.0-4.8) 10^3/ul Absolute Monos (auto) 1.0 H (0-0.8) 10^3/ul Absolute Eos (auto) 0.3 (0-0.6) 10^3/ul Absolute Basos (auto) 0 (0-0.2) 10^3/ul Absolute Nucleated RBC 0 10^3/ul Nucleated RBC % 0 INR (Anticoag Therapy) 1.05 (0.89-1.11) APTT 30.9 (26.0-36.3) seconds Sodium 138 (133-145) mmol/L Potassium 4.1 (3.5-5.0) mmol/L Chloride 103 (101-111) mmol/L Carbon Dioxide 30 (22-32) mmol/L Anion Gap 5 (2-11) mmol/L BUN 19 (6-24) mg/dL Creatinine 0.88 (0.67-1.17) mg/dL Est GFR ( Amer) 108.3 (>60) Est GFR (Non-Af Amer) 84.2 (>60) BUN/Creatinine Ratio 21.6 H (8-20) Glucose 85 (70-100) mg/dL Lactic Acid (0.5-2.0) mmol/L Calcium 8.3 L (8.6-10.3) mg/dL Magnesium 2.1 (1.9-2.7) mg/dL Total Bilirubin 0.40 (0.2-1.0) mg/dL AST 17 (13-39) U/L ALT 14 (7-52) U/L Alkaline Phosphatase 84 (34-104) U/L Total Creatine Kinase 102 (10-223) U/L CK-MB (CK-2) 2.1 (0.6-6.3) ng/mL Troponin I 0.01 (<0.04) ng/mL C-Reactive Protein 174.76 H (< 5.00) mg/L B-Natriuretic Peptide ( - 100) pg/mL Total Protein 6.2 L (6.4-8.9) g/dL Albumin 3.1 L (3.2-5.2) g/dL Globulin 3.1 (2-4) g/dL Albumin/Globulin Ratio 1.0 (1-3) Lipase 10 L (11.0-82.0) U/L TSH Pending 11/12/16 11/12/16 Range/Units 15:47 15:47 WBC (3.5-10.8) 10^3/ul RBC (4.0-5.4) 10^6/ul Hgb (14.0-18.0) g/dl Hct (42-52) % MCV (80-94) fL MCH (27-31) pg MCHC (31-36) g/dl RDW (10.5-15) % Plt Count (150-450) 10^3/ul MPV (7.4-10.4) um3 Neut % (Auto) (38-83) % Lymph % (Auto) (25-47) % Pope % (Auto) (1-9) % Eos % (Auto) (0-6) % Baso % (Auto) (0-2) % Absolute Neuts (auto) (1.5-7.7) 10^3/ul Absolute Lymphs (auto) (1.0-4.8) 10^3/ul Absolute Monos (auto) (0-0.8) 10^3/ul Absolute Eos (auto) (0-0.6) 10^3/ul Absolute Basos (auto) (0-0.2) 10^3/ul Absolute Nucleated RBC 10^3/ul Nucleated RBC % INR (Anticoag Therapy) (0.89-1.11) APTT (26.0-36.3) seconds Sodium (133-145) mmol/L Potassium (3.5-5.0) mmol/L Chloride (101-111) mmol/L Carbon Dioxide (22-32) mmol/L Anion Gap (2-11) mmol/L BUN (6-24) mg/dL Creatinine (0.67-1.17) mg/dL Est GFR ( Amer) (>60) Est GFR (Non-Af Amer) (>60) BUN/Creatinine Ratio (8-20) Glucose (70-100) mg/dL Lactic Acid 1.6 (0.5-2.0) mmol/L Calcium (8.6-10.3) mg/dL Magnesium (1.9-2.7) mg/dL Total Bilirubin (0.2-1.0) mg/dL AST (13-39) U/L ALT (7-52) U/L Alkaline Phosphatase (34-104) U/L Total Creatine Kinase (10-223) U/L CK-MB (CK-2) (0.6-6.3) ng/mL Troponin I (<0.04) ng/mL C-Reactive Protein (< 5.00) mg/L B-Natriuretic Peptide 27 ( - 100) pg/mL Total Protein (6.4-8.9) g/dL Albumin (3.2-5.2) g/dL Globulin (2-4) g/dL Albumin/Globulin Ratio (1-3) Lipase (11.0-82.0) U/L TSH Result Diagrams: 11/12/16 15:47 11/12/16 15:47 Lab Statement: Any lab studies that have been ordered have been reviewed, and results considered in the medical decision making process. - Radiology CXR Radiology Interpretation Completed By: Radiologist - MODERATE RIGHT PLEURAL EFFUSION WITH RIGHT BASILAR ATELECTASIS VERSUS CONSOLIDATION. RECOMMEND FOLLOW- UP UNTIL RESOLUTION TO EXCLUDE UNDERLYING PULMONARY PARENCHYMAL PATHOLOGY. - EKG 1435 EKG Interpretation: NSR 85 bpm, no STEMI Complex Multi-Symp Course/Dx Assessment/Plan: This is a 76 year-old male with a history of profound MR brought [facility] ED by [facility] staff for evaluation of a cough and decreased level of activity. CXR shows moderate right pleural effusion with right basilar atelectasis versus consolidation. EKG shows NSR with no STEMI. In the ED course , the patient was hydrated with IV fluids and given rocephin and clindamycin for his pneumonia. Patient care was discussed with Dr. Hood, who accepted the patient for admission. - Diagnoses Provider Diagnoses: Pneumonia, possible aspiration, Dehydration - Physician Notifications Discussed Care Of Patient With: Dr. Hood (hospitalist) at 1700: accepts admission. Discharge - Discharge Plan Condition: Stable Disposition: ADMITTED TO [facility] The documentation as recorded by the Matt cunningham Billy accurately reflects the service I personally performed and the decisions made by me, Mono Montiel MD.
[2016-11-15] MEDS: PHENobarbital TAB(*) 30 MG PO SCH (21:24)
[2016-11-15] MEDS: Amoxicillin/Clavulanate TAB* 875 MG PO SCH (21:25)
[2016-11-16] MEDS: Heparin VIAL(*) 5000 UNITS/ML VIAL (FIVE THOUSAND) SUBCUT SCH (06:23)
[2016-11-16] MEDS: Amoxicillin/Clavulanate TAB* 875 MG PO SCH (11:10)
[2016-11-16] MEDS: Phenytoin CAP(*) 100 MG CAP.ER PO SCH (11:10)
[2016-11-16] MEDS: Tamsulosin CAP* 0.4 MG PO SCH (11:10)
[2016-11-16 11:36] VITALS: BP 103/61
[2016-11-16 16:34] LABS: Total Protein, BF 3.8 g/dL
[2016-11-16 16:50] LABS: Glucose, BF 29 mg/dL
--- NOTE | 2016-11-17 02:55 | DS ---
DISCHARGE SUMMARY: DATE OF ADMISSION: 11/12/16 DATE OF DISCHARGE: 11/16/16 PRIMARY CARE PROVIDER: Dr. Jeremías Rowe. DISCHARGE DIAGNOSES: 1. Right lower lobe pneumonia with associated pleural effusion. The pneumonia was due to aspiration pneumonia. 2. Right-sided pleural effusion, status post aspiration on 11/14/16. Preliminary cytology questioning malignancy. 3. Dysphagia, which is chronic and unchanged. SECONDARY DIAGNOSES: 1. Intellectual developmental delay. 2. Hypocalcemia. 3. History of seizures. 4. 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 5. Chronic constipation. 6. History of benign prostatic hypertrophy. 7. History of chronic dysphagia. MEDICATIONS AT DISCHARGE: Include: 1. Acetaminophen 650 mg every 4 hours p.r.n. 2. Augmentin 875 mg p.o. b.i.d. for 10 days total. 3. Aspirin 81 mg daily. 4. Calcium carbonate one tablet b.i.d. 5. Debrox otic one drop bilateral eyes each Friday. 6. Proscar 5 mg daily. 7. Ibuprofen 400 mg every 6 hours p.r.n. 8. Claritin 10 mg daily. 9. Milk of magnesia 30 mL daily. 10. Metronidazole topical solution 0.75% b.i.d. 11. Multivitamin 1 daily. 12. Dilantin 200 mg at night and 100 mg in the morning. 13. MiraLax 17 g daily. 14. Salicylic acid 1% topical daily. 15. Senokot 1 tablet b.i.d. 16. Flomax 0.4 mg daily. 17. Robitussin 10 mL every 4 hours p.r.n. CONSULTATIONS DURING THE HOSPITAL STAY: Included Dr. Fernandez from Pulmonology. PROCEDURES PERFORMED: Included thoracentesis on the right side performed on by Dr. Fernandez under anesthesia. LABORATORY DATA AND STUDIES PERFORMED DURING THE HOSPITAL STAY: Included: On , white blood cell count of 5.0, hemoglobin of 11.2, hematocrit of 33 and platelets of 181. Sodium was 140, potassium 4.1, chloride 107, carbon dioxide 23, BUN 14, creatinine 0.8. C-reactive protein on admission was 174. TSH at admission was 0.76. Urinalysis unremarkable on admission. fluid analysis obtained on 11/14/16 showed yellow cloudy fluid of total of 800 cc. Total white blood cells and RBCs were not able to be estimated due to the quality of specimen. There were approximately 14% of neutrophils, 77 lymphocytes. Serology studies were negative, Influenza A and B. Chest, abdomen and pelvis CT with IV contrast a day after thoracentesis showed impression: "Right lower lobe infiltrate, moderate sized right pleural effusion. Mildly enlarged mediastinal lymph nodes. Enlarged prostate, enlarged bladder diverticulum. There is also diffuse thickening of the wall of the urinary bladder which has not changed from the prior study." HOSPITALIZATION COURSE: Mack Jimenez is a 76-year-old male with a history of developmental delay who is nonverbal at baseline with chronic dysphagia and presented with shortness of breath. He was noted to have right lower lobe infiltrate with effusion. There is a history of positive PPD and newly diagnosed effusion. Dr. Fernandez saw the patient in consultation and recommended thoracentesis. The patient needed to undergo thoracentesis under general anesthesia due to not being cooperative at baseline. That was performed on . Unfortunately, part of the specimen was clotted and plasma count could not be fully obtained. At this point, pending at the time of discharge included body fluid pH, total protein, glucose level and LDH level. The initial Gram stain of this fluid showed 4+ nucleated cells and 2+neutrophils and no organisms seen. The cultures are negative at the time of discharge. Legionella and strep pneumo antigens were also negative. Blood cultures were also negative. On 11/15/16, we received a verbal report from the pathologist that the patient has most likely malignant cells on his pleural effusion cytology. At this point, I discussed the case with Dr. Lane who recommended CT of the chest, abdomen and pelvis, which was grossly unremarkable apart from a slightly enlarged prostate and that was noted as above on 11/15/16. The patient was placed on oral antibiotics and tolerated well. The patient is recommended to be on Augmentin for the next total of 10 days. At this point, Dr. Lane's office is going to contact the patient with a followup appointment next week to follow up final pathology report that is at this point currently pending. Prior to his discharge, the patient had a swallow evaluation and was okayed for his regular diet, which is honey-thickened liquids and pureed solids. PHYSICAL EXAMINATION AT THE TIME OF DISCHARGE: Blood pressure of 157/76, heart rate of 104 and regular, respiratory rate 16, oxygen saturation 98% on room air , temperature of 98.1. General: The patient is a very pleasant 76-year-old male who is nonverbal and noncooperative with evaluation. The patient is in no acute distress. HEENT: Head atraumatic, normocephalic. Eyes: Pupils equal and reactive to light and accommodation. Oropharynx clear. Mucosa moist. Neck : Supple. No JVD, no bruit bilaterally. Cardiovascular: Regular rate and rhythm. No murmur. Respiratory: Right lower lobe rhonchi, otherwise clear. Abdomen: Soft, nontender. Bowel sounds present in all four quadrants. Extremities: There is no edema. Pulses are +2 bilaterally. There is no clubbing or cyanosis. Neuro Evaluation: Grossly nonfocal. but otherwise nonfocal weakness was detected. On further evaluation of the skin, no ecchymotic areas or rashes noted. At this point, the patient is going to be discharged back to [facility] where he is a resident of, with the followup as above mentioned. The patient also recommended for followup with his primary care provider in 4 to 7 days. Please note this is a short summary of the patient's hospital stay. Please refer to further medical records for details. TIME SPENT: Approximately 40 minutes was spent on the patient's discharge. CC: Dr. Fernandez; Dr. Jeremías Rowe; Dr. Lane* [id number]/[facility] #: [id number] [facility]
[2016-11-18 21:29] LABS: BF PH 7.5
== END 2016-11-16 12:00 | DRG 178 ==
LOC: ED 13:50 → MED 17:27
PROVIDERS: ADMIT Internal Medicine; ATTEND Internal Medicine
PROC: 0W993ZX Drainage of Right Pleural Cavity, Percutaneous Approach, Diagnostic (ICD-10-PCS; principal; 2016-11-14 12:00)
DX: J69.0 Pneumonitis due to inhalation of food and vomit (principal); J91.8 Pleural effusion in other conditions classified elsewhere; J91.0 Malignant pleural effusion; R13.19 Other dysphagia; E83.51 Hypocalcemia; G40.909 Epilepsy, unspecified, not intractable, without status epilepticus; F81.9 Developmental disorder of scholastic skills, unspecified; K59.09 Other constipation; N40.0 Benign prostatic hyperplasia without lower urinary tract symptoms; Z79.1 Long term (current) use of non-steroidal anti-inflammatories (NSAID); Z79.82 Long term (current) use of aspirin; Z79.899 Other long term (current) drug therapy; Z88.2 Allergy status to sulfonamides
CPT/HCPCS: 36415; 71010; 71260; 74177; 76604; 80048; 80053; 81003; 82550; 82553; 82945; 83605; 83615; 83690; 83735; 83880; 83986; 84157; 84443; 84484; 85025; 85610; 85730; 86140; 87040; 87205; 87502; 87641; 87899; 88112; 88341; 88342; 88360; 89051; 93005; 94760; A9270-GY; J0456; J0696; J1644; J2001; J2250; J2405; J2543; J2704; Q9967